=== PATIENT | male | born 1990 | race Caucasian/White ===

== ENCOUNTER 2017-06-01 16:38 | Emergency (ER) | payer SELFPAY ==
[~2017-06-01] VITALS: Ht 182.9 cm; Wt 111.0 kg
[~2017-06-01 16:38] MED LIST: DOXY100T PO; MOBI15TA PO; TRAM50 PO
[2017-06-01 16:47] VITALS: BP 169/91; PULSE 97; RESP 16; TEMP 97.5; O2SAT 95
[2017-06-01 19:20] VITALS: BP 180/72; PULSE 78; RESP 24; O2SAT 96
[2017-06-01 19:25] VITALS: BP 180/72; PULSE 78; RESP 20; O2SAT 96
[2017-06-01] MEDS ORDERED: SODIUM CHLORIDE 0.9% FLUSH 10 ML FLUSH IVF PRN (19:30)
[2017-06-01] MEDS ORDERED: methylPREDNISolone SOD SUCC 125 MG/2 ML VIAL IV PUSH ONE (19:30)
[2017-06-01] MEDS: RESP: ALBUTEROL 2.5 MG/IPRATROPIUM 0.5 MG NEB (SCH) INH ×2 (19:35→19:44)
--- NOTE | 2017-06-01 20:16 | RADRPT ---
EXAM DATE/TIME: 06/01/2017 19:38 [place] COMPARISON: No previous studies available for comparison. INDICATIONS : Shortness of breath for 1 week. MEDICAL HISTORY : None. SURGICAL HISTORY : None. ENCOUNTER: Initial ACUITY: 1 week PAIN SCORE: 0/10 LOCATION: Bilateral chest FINDINGS: PA and lateral views of the chest demonstrate the lungs to be symmetrically aerated without evidence of mass, infiltrate or effusion. The cardiomediastinal contours are unremarkable. Osseous structure s are intact. CONCLUSION: No evidence of acute cardiopulmonary disease. Naman Conway MD on June 01, 2017 at 20:14 Board Certified Radiologist. This report was verified electronically.
[2017-06-01 20:19] LABS: HEMATOCRIT 51.1 % (39.0-51.0); HEMOGLOBIN 17.4 GM/DL (13.0-17.0); MEAN CELL VOLUME 84.4 FL (80.0-100.0); MEAN CORPUSCULAR HEMOGLOBIN 28.7 PG (27.0-34.0); MEAN PLATELET VOLUME 9.2 FL (7.0-11.0); PLATELET COUNT 355 TH/MM3 (150-450); RED BLOOD COUNT 6.06 MIL/MM3 (4.50-5.90); RED CELL DISTRIBUTION WIDTH 12.4 % (11.6-17.2); WHITE BLOOD COUNT 10.1 TH/MM3 (4.0-11.0)
[2017-06-01 20:23] VITALS: BP 150/85; PULSE 94; RESP 20; O2SAT 96
[2017-06-01 21:18] LABS: BASOPHILS 1 % (0-2); LYMPHOCYTES 41 % (9-44); MONOCYTES 5 % (0-8); NEUTROPHIL # MANUAL DIFF 4.4 TH/MM3 (1.8-7.7); POLYS (SEG NEUTROPHILS) 44 % (16-70)
[2017-06-01 21:23] LABS: CHLORIDE 105 MEQ/L (98-107); SODIUM (NA) 136 MEQ/L (136-145)
[2017-06-01] MEDS ORDERED: VENTAER INH (21:25)
[2017-06-01] MEDS ORDERED: PRED50 PO (21:25)
--- NOTE | 2017-06-01 21:25 | PD ---
HPI Chief Complaint: Respiratory Symptoms Time Seen by Provider: 19:16 Travel History International Travel<30 days: No Contact w/Intl Traveler<30days: No Traveled to known affect area: No History of Present Illness HPI Patient is a 26-year-old male who comes in complaining of shortness of breath and pain when he takes a deep breath. He says this is been going on for the past couple of days and has been getting worse. He says he has been having allergy type symptoms. He denies fever or chills. He says he often has allergy issues, but is never had this trouble breathing before. He denies cigarette smoking. He denies nausea or vomiting. He has no history of heart issues in the past. He denies any recent travel, leg swelling, stimulant use. Severity is mild to moderate. PFSH Past Medical History Asthma: Yes (CHILDHOOD) Cardiovascular Problems: Yes (MYOCARDITIS) Diminished Hearing: No Respiratory: Yes (childhood asthma) Tetanus Vaccination: Unknown Influenza Vaccination: No Past Surgical History Other Surgery: Yes (LEFT TESTICULAR TORSION REPAIR) Social History Alcohol Use: Yes (OCCASIONAL) Tobacco Use: No (MARIJUANA) Substance Use: No Allergies-Medications (Allergen,Severity, Reaction): Coded Allergies: No Known Allergies (Verified Adverse Reaction, Unknown, 06/01/17) Reported Meds & Prescriptions Reported Meds & Active Scripts Active Review of Systems Except as stated in HPI: all other systems reviewed are Neg General / Constitutional: No: Fever, Chills HENT: No: Headaches, Lightheadedness Respiratory: Positive: Cough, Shortness of Breath Gastrointestinal: No: Nausea, Vomiting Musculoskeletal: No: Myalgias, Edema Skin: No Rash Physical Exam Narrative GENERAL: Awake and alert, no acute distress. SKIN: Focused skin assessment warm/dry. HEAD: Atraumatic. Normocephalic. EYES: Pupils equal and round. No scleral icterus. ENT: Mucous membranes pink and moist. NECK: Trachea midline. No JVD. CARDIOVASCULAR: Regular rate and rhythm. No murmur appreciated. RESPIRATORY: No accessory muscle use. Diffuse wheezing bilaterally. Breath sounds equal bilaterally. MUSCULOSKELETAL: No obvious deformities. No clubbing. No cyanosis. No edema. NEUROLOGICAL: Awake and alert. No obvious cranial nerve deficits. Motor grossly within normal limits. Normal speech. PSYCHIATRIC: Appropriate mood and affect; insight and judgment normal. Data Data Last Documented VS Vital Signs Date Time Temp Pulse Resp B/P (MAP) Pulse Ox O2 Delivery O2 Flow Rate FiO2 06/01/17 19:26 96 Room Air 06/01/17 19:25 78 20 180/72 (108) 06/01/17 16:47 97.5 Orders Orders Complete Blood Count With Diff (06/01/17 19:22) D-Dimer (06/01/17:22) Troponin I (06/01/17:) Iv Access Insert/Monitor (06/01/17:) Electrocardiogram (06/01/17) Ecg Monitoring (06/01/17:) Oximetry (06/01/17:) Oxygen Administration (06/01/17:) Chest, Pa & Lat (06/01/17:) Sodium Chloride 0.9% Flush (Ns Flush) (06/01/17 19:30) Methylprednisolone So Succ Inj (Solumedr (06/01/17 19:30) Albuterol-Ipratropium Neb (Duoneb Neb) (06/01/17 19:30) Comprehensive Metabolic Panel (06/01/17 21:02) Labs Laboratory Tests Test 06/01/17 19:45 06/01/17 21:00 White Blood Count 10.1 TH/MM3 Red Blood Count 6.06 MIL/MM3 Hemoglobin 17.4 GM/DL Hematocrit 51.1 % Mean Corpuscular Volume 84.4 FL Mean Corpuscular Hemoglobin 28.7 PG Mean Corpuscular Hemoglobin Concent 34.0 % Red Cell Distribution Width 12.4 % Platelet Count 355 TH/MM3 Mean Platelet Volume 9.2 FL CBC Comment AUTO DIFF Differential Total Cells Counted 100 Neutrophils % (Manual) 44 % Lymphocytes % 41 % Monocytes % 5 % Eosinophils % 9 % Basophils % 1 % Neutrophils # (Manual) 4.4 TH/MM3 Differential Comment FINAL DIFF MANUAL Atypical Lymphocytes % Platelet Estimate NORMAL Platelet Morphology Comment NORMAL Red Cell Morphology Comment NORMAL D-Dimer Quantitative (PE/DVT) LESS THAN 0.19 MG/L FEU Troponin I LESS THAN 0.02 NG/ML MDM Medical Decision Making Medical Screen Exam Complete: Yes Emergency Medical Condition: Yes Interpretation(s) ECG shows normal sinus rhythm at a rate of 69, no ST elevation or depression, normal intervals. Differential Diagnosis Asthma versus pneumonia versus bronchitis Narrative Course Patient is a 26-year-old male who comes in complaining of shortness of breath and pain with breathing. Exam shows diffuse wheezing. IV established, labs sent. Labs show no acute abnormalities, d-dimer and troponin are negative. Chest x-ray shows no acute abnormalities. Last 24 hours Impressions Chest X-Ray 06/01/171921 Signed Impressions: Service Date/Time: May 19:38 - CONCLUSION: No evidence of acute cardiopulmonary disease. Naman Conway MD Patient given duo nebs and a dose of steroids. He reports feeling better. His lungs are now clear to auscultation. He will be discharged with a prescription for an albuterol inhaler as well as prednisone. Advised to start the prednisone tomorrow as he had a dose of steroids today. Advised follow-up with his doctor. Advised return to the ED as needed for any worsening symptoms. Diagnosis Primary Impression: Bronchitis Referrals: [facility] call for appointment Patient Instructions: Acute Bronchitis (ED), General Instructions Additional Instructions: Use the albuterol inhaler as needed for shortness of breath. Start the prednisone tomorrow as you had a dose of steroids already today. Follow-up with a primary care doctor. Return to the ED as needed for any worsening symptoms. Scripts Prednisone (Prednisone) 50 Mg Tab 50 MG PO DAILY for 4 Days, #4 TAB 0 Refills Prov: Ginny Yee MD 06/01/17 Albuterol 18 GM Inh (Ventolin Hfa 18 GM Inh) 90 Mcg/Act Aer 2 PUFF INH Q4-6H Y for SHORTNESS OF BREATH, #1 INHALER 0 Refills Prov: Ginny Yee MD 06/01/17 Disposition: 01 DISCHARGE HOME Condition: Stable Ginny Yee MD Jun 01, 2017 21:25
[2017-06-01 21:26] LABS: CALCIUM 8.5 MG/DL (8.5-10.1)
[2017-06-01 21:27] LABS: BICARBONATE 23.7 MEQ/L (21.0-32.0); BLOOD UREA NITROGEN 15 MG/DL (7-18); GLUCOSE,RANDOM 94 MG/DL (74-106)
[2017-06-01 21:30] LABS: ALT (GPT) 43 U/L (12-78); AST (GOT) 17 U/L (15-37); GLOMERULAR FILTRATION RATE 134 ML/MIN (>89)
[2017-06-01 21:31] LABS: TOTAL BILIRUBIN ADULT 0.5 MG/DL (0.2-1.0)
[2017-06-01 21:32] LABS: TOTAL PROTEIN 7.6 GM/DL (6.4-8.2)
[2017-06-01 21:33] LABS: ALKALINE PHOSPHATASE 112 U/L (45-117)
[2017-06-01 22:15] VITALS: BP 134/77
--- NOTE | 2017-06-02 11:10 | EKG ---
Date Performed: 06/01/2017 Time Performed: 19:29:03 PTAGE: 26 years EKG: Sinus rhythm WITH SINUS ARRHYTHMIA NORMAL ECG NO PREVIOUS TRACING DOCTOR: Dov Gonzalez Interpretating Date/Time 06/02/2017 11:07:40
== END 2017-06-01 22:34 | disposition home or self-care (01) ==
LOC: PHED 16:38
DX: J40 Bronchitis, not specified as acute or chronic (principal)
CPT/HCPCS: 71046; 80053; 84484; 85007; 85027; 85379; 93005; 94640; 94664; 96374; 99285; J2930